=== PATIENT | male | born 1955 | race Caucasian/White ===

== ENCOUNTER → 2024-05-23 | Outpatient (CLI) | payer MEDICARE, BC, SELFPAY ==
--- NOTE | 2024-05-23 15:00 | XR_ITS ---
Examination: CT abdomen without intravenous contrast. Coronal 2-D reconstructions. Sagittal 2-D reconstructions. Date and time of exam:May 23, 2024 1452 hours Comparison November 03, 2011 INDICATIONS: Epigastric pain beginning 2 weeks ago CTDI: vol (mGy): 10.1 DLP: (mGycm): 318 Technique: Axial images of the abdomen have been obtained, 3 mm slice thickness, without intravenous contrast 2-D sagittal coronal reconstructions Low dose protocols were performed. One or more of the following dose reduction techniques were used; automated exposure control, adjustment of the mA and/or KV according to patient size, use of iterative reconstruction technique. Findings: No focal liver or splenic lesions Contracted gallbladder No pancreatic or adrenal mass 1 mm nonobstructing left renal calculus axial image 110, 1 mm calculus upper pole right kidney coronal image 79 Mild to moderate bilateral renal parenchymal scar formation No hydronephrosis or ureteral calculi 21 mm solid appearing mass medial margin right kidney axial image 116 IMPRESSION: Recommend dedicated renal sonography follow-up to confirm 21 mm solid mass medial margin right kidney Tiny bilateral renal calculi
== END | disposition home or self-care (01) ==
PROVIDERS: PCP Specialist; Referring Provider Internal Medicine; Visit Provider Internal Medicine
DX: N20.0 Calculus of kidney (principal)
CPT/HCPCS: 74150

== ENCOUNTER → 2024-05-30 | Outpatient (CLI) | payer MEDICARE, BC, SELFPAY ==
[2024-05-30 09:15] LABS: Collection Type, Urine Clean Catch; Squamous Epithelial Cell,Urine 0 /hpf (0-5)
[2024-05-30 09:40] LABS: Basophils % (Auto) 0 % (0-2.5); Eosinophils # (Auto) 0.2 Thou/mm3 (0.0-0.5); Eosinophils % (Auto) 5 % (0-10); Hematocrit 40.2 % (41.0-53.0); Immature Granulocytes % (Auto) 0 % (0-0); Lymphocytes % (Auto) 41 % (10-50); Mean Corpuscular HGB Conc 34.8 g/dl (31.0-37.0); Mean Corpuscular Hemoglobin 32.1 pg (25.0-35.0); Mean Corpuscular Volume 92 fL (80-100); Monocytes # (Auto) 0.4 Thou/mm3 (0.0-0.8); Monocytes % (Auto) 9 % (0-12); Neutrophils # (Auto) 2.2 Thou/mm3 (1.8-7.7); Neutrophils % (Auto) 45 % (37-80); Nucleated Red Blood Cell % 0 /100 WBC (0); Platelet Count 177 Thou/mm3 (140-440); RDW Standard Deviation 45.5 fL (35.1-43.9); Red Blood Count 4.36 Miln/mm3 (4.50-5.90); White Blood Count 4.8 Thou/mm3 (3.8-10.6)
[2024-05-30 09:46] LABS: Bilirubin,Urine Negative (Negative); Blood,Urine Negative (Negative); Clarity,Urine Clear (Clear/Hazy); Color,Urine Yellow (Lt Yel-Yel); Glucose, Urine Negative (Negative); Ketones,Urine Negative (Negative); Leukocyte Esterase,Urine Negative (Negative); Nitrite,Urine Negative (Negative); Protein,Urine Negative (Neg - Trace); RBC,Urine 2 /hpf (0-3); Specific Gravity,Urine 1.018 (1.001-1.035); Urobilinogen,Urine Negative mg/dL (0.0-1.0); WBC,Urine 1 /hpf (0-5)
[2024-05-30 11:44] LABS: Alanine Aminotransferase 28 U/L (10-49); Albumin, Serum 4.5 gm/dL (3.4-4.8); Albumin/Globulin Ratio 1.7 (1.2-2.2); Alkaline Phosphatase 57 U/L (46-116); Anion Gap 10 (7-16); Aspartate Amino Transferase 24 U/L (0-34); BUN/Creatinine Ratio 17 Ratio (12-20); Bilirubin,Total 0.5 mg/dL (0.3-1.2); Blood Urea Nitrogen 17 mg/dL (9-23); Calcium 9.9 mg/dL (8.3-10.6); Calcium (Corrected) 9.9 mg/dL (8.5-10.1); Cardiac Risk Estimate 4.5 RATIO (4.0-6.7); Chloride 106 mMol/L (98-107); Cholesterol 170 mg/dL (132-200); Globulin 2.7 gm/dL (2.3-3.5); Glucose 96 mg/dL (74-106); HDL Cholesterol 38 mg/dL (40-60); LDL Cholesterol,Calculated 115 mg/dL (0-130); Osmolality,Calculated 282 (275-295); Potassium 4.3 mMol/L (3.4-5.1); Sodium 141 mMol/L (136-145); Total Protein 7.2 gm/dL (5.7-8.2); Triglycerides 86 mg/dL (30-150); Uric Acid 10.6 mg/dL (3.7-9.2); eGFR > 60 See Note
[2024-05-30 11:51] LABS: Vitamin B12 554 pg/mL (211-911)
[2024-05-30 12:19] LABS: Misc Send Out* See Sep Rpt
[2024-06-04 06:42] LABS: CA 19-9 Antigen* 7 U/mL (<34)
== END | disposition home or self-care (01) ==
LOC: COPL 08:30
PROVIDERS: PCP Internal Medicine; Referring Provider Internal Medicine; Visit Provider Internal Medicine
DX: Z00.00 Encounter for general adult medical examination without abnormal findings (principal); E78.5 Hyperlipidemia, unspecified; I10 Essential (primary) hypertension; R63.4 Abnormal weight loss; E55.9 Vitamin D deficiency, unspecified
CPT/HCPCS: 36415; 80053; 80061; 81001; 82306; 82607; 83036; 84443; 84550; 85025; 86301

== ENCOUNTER 2024-07-02 09:40 | Day surgery (SDC) | payer MEDICARE, BC, SELFPAY ==
[2024-07-01 11:43] VITALS: BMI 30.9
[2024-07-02] VITALS (7 sets, daily range): BP systolic 140–198; BP diastolic 75–108; PULSE 65–92; RESP 11–22; TEMP 36.6–36.7; O2SAT 94–95; BMI 31.4
[2024-07-02] MEDS: SODIUM CHLORIDE 0.9% 500 ML 500 ML 20 ML IV (11:23)
[2024-07-02] MEDS: MIDAZOLAM INJ 1 MG/ML VIAL 2 ML (ASD USE ONLY) 2 MG IV (11:28)
[2024-07-02] MEDS: DiphenhydrAMINE INJ 50 MG/ML VIAL 25 MG IV (11:28)
[2024-07-02] MEDS: fentaNYL CIT INJ 50 mCg/ML AMP 2ML (ASD USE ONLY) IV (11:28)
--- NOTE | 2024-07-02 12:01 | SUR.PHASEII ---
1140: Pt received for recovery. Report from Kaylin WONG. Pt groggy. Easily aroused with eye opening. Resp even, unlabored. VS stable. No c/o pain, discomfort.
--- NOTE | 2024-07-02 12:38 | SUR.PHASEII ---
Addendum entered by Avani Taveras RN 07/02/24 12:45: Note entered for 1122 in error. Type error. Should be timed for 1222. Original Note: 1205: Pt more awake, alert. VS stable. Denies pain. Sitting up tolerating po fluids with no difficulty swallowing and no n/v. 1122: Pt fully awake, oriented x3. Pt assisted to restroom. Ambulation steady. Pt and stated understanding of discharge instructions. Pt discharged from [facility] in stable condition.
== END 2024-07-02 12:22 | disposition home or self-care (01) ==
PROVIDERS: PCP Internal Medicine; Referring Provider Specialist; Visit Provider Specialist
PROC: (CPT 43239; principal; 2024-07-02 10:00)
DX: K20.90 Esophagitis, unspecified without bleeding (principal); K29.70 Gastritis, unspecified, without bleeding; K29.50 Unspecified chronic gastritis without bleeding
CPT/HCPCS: 43239; A4649; J1200; J2250; J3010; J7040

== ENCOUNTER → 2024-07-14 | Outpatient (CLI) | payer MEDICARE, BC, SELFPAY ==
--- NOTE | 2024-07-14 16:15 | XR_ITS ---
Examination: Retroperitoneal ultrasound, complete Technique: Multiple high resolution grayscale images of the retroperitoneum obtained, including kidneys and bladder. Exam date and time:July 14, 2024 CT and 23 hours INDICATIONS: CT examination May 23, 2024 21 mm solid appearing mass medial margin right kidney FINDINGS: Right kidney 10.7 cm renal cortex 1.6 cm Medial 20 x 23 mm cyst No solid renal mass lesion Left kidney 11.2 cm renal cortex 1.9 cm Lateral cyst 5 x 6 mm Bilateral renal parenchymal scar formation No bladder mass or bladder calculi Bladder prevoid volume 353 cc IMPRESSION: Bilateral renal cysts No solid renal mass lesion noted
== END | disposition home or self-care (01) ==
LOC: CDIM 16:05
PROVIDERS: Referring Provider Internal Medicine; Visit Provider Internal Medicine
DX: N28.1 Cyst of kidney, acquired (principal)
CPT/HCPCS: 76770

== ENCOUNTER 2024-10-13 20:32 | Emergency (ER) | payer MEDICARE, BC, SELFPAY ==
--- NOTE | 2024-10-13 20:33 | EKG_ITS ---
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
[2024-10-13 20:34] VITALS: BMI 31.4
[2024-10-13 20:37] VITALS: BP 161/80; BP 181/79; PULSE 62; RESP 20; O2SAT 95
[2024-10-13 20:39] VITALS: TEMP 36.4
[2024-10-13 21:16] LABS: Basophils # (Auto) 0.0 Thou/mm3 (0.0-0.2); Basophils % (Auto) 1 % (0-2.5); Eosinophils # (Auto) 0.3 Thou/mm3 (0.0-0.5); Eosinophils % (Auto) 3 % (0-10); Hematocrit 39.4 % (41.0-53.0); Hemoglobin 13.8 g/dL (13.5-16.0); Immature Granulocytes Auto 0.01 Thou/mm3 (0.00-0.00); Lymphocytes # (Auto) 2.1 Thou/mm3 (1.0-4.8); Lymphocytes % (Auto) 27 % (10-50); Mean Corpuscular HGB Conc 35.0 g/dl (31.0-37.0); Mean Corpuscular Hemoglobin 33.3 pg (25.0-35.0); Mean Corpuscular Volume 95 fL (80-100); Monocytes # (Auto) 0.6 Thou/mm3 (0.0-0.8); Monocytes % (Auto) 8 % (0-12); Neutrophils # (Auto) 4.7 Thou/mm3 (1.8-7.7); Neutrophils % (Auto) 61 % (37-80); Nucleated Red Blood Cell # 0.00 Thou/mm3 (0.00-0.00); Nucleated Red Blood Cell % 0 /100 WBC (0); Platelet Count 171 Thou/mm3 (140-440); RDW Standard Deviation 48.4 fL (35.1-43.9); Red Blood Count 4.14 Miln/mm3 (4.50-5.90); White Blood Count 7.7 Thou/mm3 (3.8-10.6)
[2024-10-13 21:33] LABS: B-Type Natriuretic Peptide < 20 pg/mL (0-100)
[2024-10-13 21:35] LABS: Alanine Aminotransferase 28 U/L (10-49); Albumin, Serum 4.4 gm/dL (3.4-4.8); Albumin/Globulin Ratio 1.8 (1.2-2.2); Alkaline Phosphatase 65 U/L (46-116); Anion Gap 12 (7-16); Aspartate Amino Transferase 22 U/L (0-34); BUN/Creatinine Ratio 15 Ratio (12-20); Bilirubin,Total 0.3 mg/dL (0.3-1.2); Blood Urea Nitrogen 19 mg/dL (9-23); Calcium 9.0 mg/dL (8.3-10.6); Calcium (Corrected) 9.0 mg/dL (8.5-10.1); Carbon Dioxide 23.9 mMol/L (20.0-31.0); Chloride 106 mMol/L (98-107); Creatinine (Component) 1.3 mg/dL (0.6-1.3); Estimated Creatinine Clearance 57.4 mL/min (>60); Globulin 2.5 gm/dL (2.3-3.5); Glucose 128 mg/dL (74-106); Lipase 45 U/L (12-53); Osmolality,Calculated 287 (275-295); Potassium 3.8 mMol/L (3.4-5.1); Sodium 142 mMol/L (136-145); Total Protein 6.9 gm/dL (5.7-8.2); Troponin I < 0.020 ng/mL (0.0-0.045); eGFR > 60 See Note
--- NOTE | 2024-10-13 23:18 | XR_ITS ---
Examination: PA lateral chest 2 views TECHNIQUE: Upright PA and lateral chest 2 views Date and time: October 13, 2024 11:35 PM Comparison October 25, 2011 INDICATIONS: Chest pain and cardiac palpitations today. FINDINGS: Normal heart size No pneumonia or pulmonary edema Moderate diffuse thoracic disc narrowing IMPRESSION: No pneumonia or pulmonary edema
--- NOTE | 2024-10-13 23:20 | EKG_ITS ---
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
[2024-10-14] LABS: Creatine Kinase 205 U/L (34-171); Troponin I < 0.020 ng/mL (0.0-0.045)
[2024-10-14 00:55] LABS: Collection Type, Urine Clean Catch
[2024-10-14 00:58] LABS: Bilirubin,Urine Negative (Negative); Blood,Urine Negative (Negative); Clarity,Urine Clear (Clear/Hazy); Color,Urine Yellow (Lt Yel-Yel); Culture Indicated,Urine Not Indicated; Glucose, Urine Negative (Negative); Hyaline Casts,Urine < 1 /hpf (0-1); Ketones,Urine Negative (Negative); Leukocyte Esterase,Urine Negative (Negative); Nitrite,Urine Negative (Negative); PH,Urine 5.5 (5.0-7.0); Protein,Urine Negative (Neg - Trace); RBC,Urine 1 /hpf (0-3); Specific Gravity,Urine 1.024 (1.001-1.035); Squamous Epithelial Cell,Urine < 1 /hpf (0-5); Urobilinogen,Urine Negative mg/dL (0.0-1.0); WBC,Urine 1 /hpf (0-5)
--- NOTE | 2024-10-14 03:44 | PD.EDARRY ---
ED Arrhythmia Palp. RME/HPI General Chief Complaint: Chest Pain Stated Complaint: CHEST PAIN, PALPITATIONS Time Seen by Provider: 10/13/24 22:46 Arrival date/time: 10/13/24 20:32 Related Data Home Medications ?Medication ?Instructions ?Recorded ?Confirmed losartan 50 mg tablet 50 mg PO QDAY 12/31/17 07/02/24 tadalafil 5 mg tablet (Cialis) 1 tab PO DAILY 12/31/17 07/02/24 warfarin 1 mg tablet 3 mg PO QDAY 05/29/18 07/02/24 montelukast 10 mg tablet 10 mg PO DAILY 03/26/23 07/02/24 gemfibrozil 600 mg tablet 600 mg PO QDAY 07/01/24 07/02/24 allopurinol 300 mg tablet 300 mg PO QDAY 07/02/24 07/02/24 pantoprazole 20 mg tablet,delayed 20 mg PO QDAY 07/02/24 07/02/24 release Allergies Allergy/AdvReac Type Severity Reaction Status Date / Time No Known Allergies Allergy Verified 10/13/24 20:33 Course Orders Category Date Time Status EKG (ED ONLY) *Do not use* NOW Care 10/13/24 20:33 Completed EKG (ED ONLY) *Do not use* NOW Care 10/13/24 23:20 Completed EKG (ED Only) Stat Exams 10/13/24 20:33 Draft EKG (ED Only) Stat Exams 10/13/24 23:20 Draft XR chest 2V Stat Exams 10/13/24 23:18 Completed BNP [B-Type Natriuretic Peptide] Stat Lab 10/13/24 20:53 Completed CBC Stat Lab 10/13/24 20:53 Completed CK [Creatine Kinase] Stat Lab 10/13/24 23:25 Completed CMP [Comprehensive Metabolic Panel] Stat Lab 10/13/24 20:53 Completed Lipase Stat Lab 10/13/24 20:53 Completed Troponin I Stat Lab 10/13/24 20:53 Completed Troponin I Stat Lab 10/13/24 23:25 Completed Urinalysis, C/S if Indicated Stat Lab 10/14/24 00:16 Completed Vital Signs Vital signs: Vital Signs Pulse Rate 62 10/13/24 20:37 Respiratory Rate 20 10/13/24 20:37 Blood Pressure 181/79 H 10/13/24 20:37 Pulse Oximetry (%) 95 08/11/25 20:37 Oxygen Delivery Method Room Air 10/13/24 20:37 Discharge Plan Plan Patient Disposition: HOME (Self Care) Discharge Disposition comment: Stable Prescriptions/Referrals Prescriptions/Med Rec: No Action losartan 50 mg Tablet 50 mg PO QDAY tadalafil [Cialis] 5 mg Tablet 1 tab PO DAILY warfarin 1 mg Tablet 3 mg PO QDAY montelukast 10 mg tablet 10 mg PO DAILY Patient Comments: TAKE 1 TABLET BY MOUTH DAILY gemfibrozil 600 mg tablet 600 mg PO QDAY Patient Comments: TAKE 1 TABLET BY MOUTH EVERY NIGHT pantoprazole 20 mg tablet,delayed release (DR/EC) 20 mg PO QDAY Patient Comments: TAKE 1 TABLET BY MOUTH DAILY allopurinol 300 mg tablet 300 mg PO QDAY Patient Comments: TAKE 1 TABLET BY MOUTH DAILY Referrals: Dulce Haq MD [Primary Care Provider] - In 1 week Problem List Clinical Impression: Heart palpitations, Heat exhaustion Patient/Caregiver Discharge Instructions Education Materials: ED Heat Exhaustion, ED Palpitations Additional Instructions: Do not work outside past about 10 AM due to the excessive heat. Come inside after about an hour and a half to hydrate yourself and rest before going back out again. Keep yourself well-hydrated, especially during this heat. Follow-up with your primary care physician in 24 to 48 hours. Return to the ED for any new or worsening symptoms. Print Language: Thai Stand Alone Forms: Charlee Award Info., Patient Portal Info Letter PA/SAMSON Supervising Physician PA/SAMSON Supervising Physician: Dr. Castaneda
[2024-10-14 03:52] VITALS: RESP 18; O2SAT 97
== END 2024-10-14 03:53 | disposition home or self-care (01) ==
PROVIDERS: Physician Assistant; Emergency Provider Emergency Medicine; PCP Internal Medicine
DX: T67.5XXA Heat exhaustion, unspecified, initial encounter (principal); R00.2 Palpitations; R07.9 Chest pain, unspecified; X30.XXXA Exposure to excessive natural heat, initial encounter
CPT/HCPCS: 36415; 71046; 80053; 81001; 82550; 83690; 83880; 84484; 85025; 93005; 99284

== ENCOUNTER → 2024-11-06 | Outpatient (CLI) | payer MEDICARE, BC, SELFPAY ==
[2024-11-06 10:21] LABS: Alanine Aminotransferase 33 U/L (10-49); Albumin, Serum 4.6 gm/dL (3.4-4.8); Albumin/Globulin Ratio 2.1 (1.2-2.2); Alkaline Phosphatase 73 U/L (46-116); Anion Gap 13 (7-16); Aspartate Amino Transferase 20 U/L (0-34); BUN/Creatinine Ratio 17 Ratio (12-20); Bilirubin,Total 0.7 mg/dL (0.3-1.2); Blood Urea Nitrogen 19 mg/dL (9-23); Calcium 10.1 mg/dL (8.3-10.6); Calcium (Corrected) 10.1 mg/dL (8.5-10.1); Carbon Dioxide 25.2 mMol/L (20.0-31.0); Cardiac Risk Estimate 4.3 RATIO (4.0-6.7); Chloride 104 mMol/L (98-107); Cholesterol 143 mg/dL (132-200); Creatinine (Component) 1.1 mg/dL (0.6-1.3); Globulin 2.2 gm/dL (2.3-3.5); Glucose 92 mg/dL (74-106); HDL Cholesterol 33 mg/dL (40-60); LDL Cholesterol,Calculated 83 mg/dL (0-130); Osmolality,Calculated 285 (275-295); Potassium 4.7 mMol/L (3.4-5.1); Sodium 142 mMol/L (136-145); Total Protein 6.8 gm/dL (5.7-8.2); Triglycerides 135 mg/dL (30-150); eGFR > 60 See Note
== END | disposition home or self-care (01) ==
LOC: COPL 08:18
PROVIDERS: PCP Internal Medicine; Referring Provider Internal Medicine; Visit Provider Internal Medicine
DX: N18.30 Chronic kidney disease, stage 3 unspecified (principal); E78.49 Other hyperlipidemia
CPT/HCPCS: 36415; 80053; 80061